=== PATIENT | male | born 1965 | race Caucasian/White ===

== ENCOUNTER → 2017-02-13 | Outpatient (CLI) | payer MEDICARE, OTHER | LOC: OPSV 12:23 | DX: J85.2 Abscess of lung without pneumonia (principal) | CPT/HCPCS: G0463 ==

== ENCOUNTER → 2017-02-24 | Outpatient (CLI) | payer MEDICARE, OTHER | LOC: OPSV 13:00 | DX: J85.2 Abscess of lung without pneumonia (principal) | CPT/HCPCS: G0463 ==

== ENCOUNTER → 2017-02-28 | Outpatient (CLI) | payer MEDICARE, OTHER ==
[~2017-02-28] VITALS: Ht 193 cm; Wt 85.7 kg
[2017-02-28 09:54] LABS: HEMOGLOBIN 12.9 gm/dl (14.0-17.5); RED BLOOD COUNT 4.27 M/UL (4.20-5.50); WHITE BLOOD COUNT 9.4 K/UL (4.5-11.0)
[2017-02-28 10:11] LABS: BUN/CREATININE RATIO 11 (0-10)
== END ==
LOC: OPSV 08:26
PROVIDERS: Internal Medicine Infectious Disease
DX: J85.2 Abscess of lung without pneumonia (principal)
CPT/HCPCS: 36592; 80053; 85025; 86140; 86606; 86612; 86635; 86698; 87385; 96365; J1335; J7050

== ENCOUNTER → 2017-04-04 | Outpatient (CLI) | payer MEDICARE, OTHER | LOC: OPSV 11:25 | DX: J85.2 Abscess of lung without pneumonia (principal) | CPT/HCPCS: G0463 ==